=== PATIENT | male | born 1955 | race Caucasian/White ===

== ENCOUNTER 2025-02-20 08:12 | Outpatient (CLI) | payer SELFPAY | END 2025-02-20 08:13 | disposition home or self-care (01) | LOC: CSHWCC 08:12 | PROVIDERS: ATTEND Nurse Practitioner Family | DX: L97.511 Non-pressure chronic ulcer of other part of right foot limited to breakdown of skin (principal); G90.09 Other idiopathic peripheral autonomic neuropathy; Z72.0 Tobacco use | CPT/HCPCS: 99213; G0463 ==